=== PATIENT | female | born 1930 | race Caucasian/White ===

== ENCOUNTER → 2017-01-10 11:56 | Emergency (ER) | payer MEDICARE ==
[2017-01-10 12:01] VITALS: BP 160/55
--- NOTE | 2017-01-10 13:35 | RAD ---
HISTORY: Left posterior thigh pain COMPARISONS: None relevant TECHNIQUE: Multiple transverse and longitudinal ultrasound images were obtained of the left lower extremity from the level of the common femoral vein inferiorly through to the infrapopliteal veins using grayscale, color Doppler, and spectral Doppler imaging with and without compression and with augmentation. Comparison images were obtained of the contralateral common femoral vein. FINDINGS: VEINS: The venous system of the left lower extremity is compressible throughout its course, with normal flow on color Doppler imaging and normal response to augmentation on spectral Doppler imaging. SOFT TISSUES: Unremarkable. OTHER FINDINGS: None. IMPRESSION: NO LEFT LOWER EXTREMITY DEEP VEIN THROMBOSIS
--- NOTE | 2017-01-10 13:38 | RAD ---
Indication: Sciatica, left posterior thigh pain CT of the lumbar spine was obtained in the axial plane. The vertebral bodies appear normal in height. At L5-S1 the disc is preserved in height and signal. No facet arthropathy is noted. At L4-L5 degenerative disc disease with spondylytic ridge flattens the thecal sac. Moderate degree of facet arthropathy is noted. No central or foraminal stenosis is noted. At L3-L4 degenerative disc disease and spondylitic ridge is noted. Moderate degree of facet arthropathy is noted. No central or foraminal stenosis is noted. At T12-L1, L1-L2, L2-L3 and L3-L4 the disc is preserved in height and signal. No compression fracture is identified. IMPRESSION: Degenerative disc disease at L3-L4 and L4-L5 without evidence of fracture.
--- NOTE | 2017-01-10 14:23 | ED ---
Winston Burrows Rebecca, scribed for Justine Sutton MD on 01/10/17 at 1215 . Lower Extremity - HPI Summary HPI Summary: Pt is an 86 y/o F who presents to ED c/o posterior LLE pain in the hamstring. Pain began suddenly last night, preventing the pt from sleeping, and has been constant since onset. Pain is discrete to the hamstring of the LLE. Pain is currently mild ranked 1/10 and characterized as sharp, shooting. Sx aggravated by palpation and sitting, alleviated by nothing. Reports movement does not increase sx. Denies fever, chills, dysuria. When asked, pt denied any pain medications. One prior similar episode of sx, during which the pt was concerned about DVT, which was r/o. PMHx sciatic back pain. No PMHx CA. - History of Current Complaint Chief Complaint: EDExtremityLower Stated Complaint: LT THIGH PAIN Time Seen by Provider: 01/10/17 12:14 Hx Obtained From: Patient Onset of Pain: Prior to Arrival Onset/Duration: Hours - Last night Severity Initially: Moderate Severity Currently: Mild Pain Intensity: 1 Pain Scale Used: 0-10 Numeric Timing: Constant Location: Is Discrete @ - LLE hamstring Associated Signs And Symptoms: Positive: Negative. Negative: Fever Aggravating Factor(s): Other - Palpation Alleviating Factor(s): Nothing PMH/Surg Hx/FS Hx/Imm Hx Endocrine/Hematology History: Denies: Hx Diabetes Cardiovascular History: Reports: Hx Hypercholesterolemia Denies: Other Cardiovascular Problems/Disorders Respiratory History: Denies: Hx Asthma, Hx Chronic Obstructive Pulmonary Disease (COPD) Musculoskeletal History: Reports: Hx Back Problems - Sciatic back pain Infectious Disease History: No Infectious Disease History: Denies: Traveled Outside the [place] in Last 30 Days - Family History Known Family History: Positive: Hypertension - Social History Alcohol Use: None Substance Use Type: Reports: None Hx Tobacco Use: No Smoking Status (MU): Never Smoked Tobacco Review of Systems Negative: Fever, Chills Negative: dysuria Positive: Arthralgia - Hamstring pain in the LLE All Other Systems Reviewed And Are Negative: Yes Physical Exam - Summary Physical Exam Summary: General: Well appearing, no pain distress Skin: Warm, Skin Color Reflects Adequate Perfusion, Dry Eyes: EOMI, NIYAH ENT: Pharynx normal, TMs normal Neck: Supple, nontender Respiratory: CTA, breath sounds present, no rhonchi, no wheezes, no rales Cardiovascular: RRR, no murmur, no rub, no gallop Abdomen: Soft, nontender, Non-distended, no guarding, no rebound Bowel: Present Musculoskeletal: TRISTA, No edema, No costovertebral tenderness, No erythema or fluctuance. Tenderness over the hamstring. Neuro: Sensory/motor intact, A&Ox3, CN intact 2-12 Psych: Affect/mood appropriate Triage Information Reviewed: Yes Vital Signs On Initial Exam: Initial Vitals Temp Pulse Resp BP Pulse Ox 96.2 F 77 20 160/55 100 01/10/17 11:58 01/10/17 11:58 01/10/17 11:58 01/10/17 11:58 01/10/17 11:58 Vital Signs Reviewed: Yes Diagnostics - Vital Signs Vital Signs Temp Pulse Resp BP Pulse Ox 01/10/17 12:01 96.4 F 76 20 160/55 100 01/10/17 11:58 96.2 F 77 20 160/55 100 - Laboratory Lab Statement: Any lab studies that have been ordered have been reviewed, and results considered in the medical decision making process. - CT CT L-Spine CT Interpretation Completed By: Radiologist - Degenerative disc disease at L3- L4 and L4-L5 without evidence of fracture. - Ultrasound No standard instances Ultrasound Interpretation: No Acute Changes - NO LEFT LOWER EXTREMITY DEEP VEIN THROMBOSISVenosu Doppler Study: Ultrasound Interpretation Completed By: Radiologist Lower Extremity Course/Dx - Course Course Of Treatment: 86 yo female normal vs with discomfort posterior thigh, no erythema, full range of motion, able to ambulate, no mass, no fluctuance, no induration. doppler of ext neg, ct shows diffuse disease but not clear diagnosis of sciatica as the etiology of the pain. pt without fevers, pt to f/u with pmd and will take tylenol of note no trauma - Diagnoses Provider Diagnoses: Leg pain Discharge - Discharge Plan Condition: Stable Disposition: HOME Patient Education Materials: Leg Pain (ED) Referrals: Josué Nicole MD [Primary Care Provider] - 2 Days The documentation as recorded by the Winston gillespie Rebecca accurately reflects the service I personally performed and the decisions made by me, Justine Sutton MD.
== END | disposition home or self-care (01) ==
LOC: ED 11:56
DX: M79.662 Pain in left lower leg (principal); E78.00 Pure hypercholesterolemia, unspecified; M51.36 Other intervertebral disc degeneration, lumbar region
CPT/HCPCS: 72131; 99281

== ENCOUNTER 2017-12-23 07:04 | Day surgery (SDC) | payer MEDICARE, OTHER ==
--- NOTE | 2017-12-14 09:28 | HP ---
PREOPERATIVE HISTORY AND PHYSICAL: DATE OF ADMISSION/SURGERY: 12/23/17 DATE OF OFFICE VISIT/ENCOUNTER: 12/05/17 ATTENDING SURGEON: Lisa Crockett MD* (dictated by FUNMILAYO Puri). PROCEDURE: Right thumb trigger finger release. CHIEF COMPLAINT: Right thumb triggering. HISTORY OF PRESENT ILLNESS: This is an 87-year-old female, who complains of catching and clicking in her right thumb since the end of 2016. She is having trouble squeezing her eye drops bottle and doing such things as tying her shoes and riding. She did receive a cortisone injection in August of 2017 that was helpful for a short period of time, but symptoms returned. She is interested in pursuing more definitive treatment for this problem and has consented to proceed with surgery. PAST MEDICAL HISTORY: 1. Hypertension. 2. Hypothyroidism. 3. Glaucoma. 4. Hypercholesterolemia. 5. GERD. PAST SURGICAL HISTORY: 1. Corneal implants. 2. Ectopic . CURRENT MEDICATIONS: 1. Amlodipine besylate 10 mg daily. 2. Aspirin 81 mg daily. 3. Azopt 1% one drop twice daily, right eye. 4. Fish oil 1000 mg daily. 5. Folic acid 1 mg daily. 6. Istalol 0.5% 1 drop right eye daily. 7. Losartan potassium 100 mg daily. 8. Senior Multivitamin 1 daily. 9. Synthroid 50 mcg daily. 10. Travatan Z 0.004% one drop right eye daily. 11. Triamcinolone acetonide 0.1% apply twice daily p.r.n. 12. Vitamin B12 and B6 daily. 13. Zetia 10 mg daily. ALLERGIES: IODINE, REQUIP, and SULFA ANTIBIOTICS, reaction unknown. FAMILY MEDICAL HISTORY: Heart disease and cancer. SOCIAL HISTORY: The patient is retired. She is a former smoker. She quit approximately 50 years ago. She denies recreational drug use. She drinks alcohol on a very rare occasion. REVIEW OF SYSTEMS: General: Negative for fevers, chills, or night sweats. No known anesthesia problems. HEENT: Positive for runny nose. Negative for headache, lightheadedness, or syncopal episodes. Integumentary: Negative for abrasions, lesions, or open wounds. Cardiothoracic: Negative for hypertension , chest pain, palpitations, or edema. Pulmonary: Positive for cough/ congestion. Negative for shortness of breath with exertion, chronic cough, or COPD. GI: Positive for GERD. Negative for nausea, vomiting, diarrhea, or constipation. : Negative for nocturia, urinary frequency, urgency, history of UTIs, and kidney problems. Musculoskeletal: Positive for current complaint , negative for chronic or intermittent back pain, or history of fractures. Neurological: Negative for paresthesias, numbness, history of seizure, stroke, or epilepsy. Endocrine: Positive for hypothyroidism, negative for diabetes. Hematologic: Negative for easy bruising, anemia, excessive bleeding, history of DVT. Infectious Disease: Negative for history of MRSA, hepatitis C, HIV. PHYSICAL EXAMINATION GENERAL: Well-developed, well-nourished, 87-year-old female, in no acute distress. VITAL SIGNS: Height 5 feet 6 inches, weight 198 pounds, pulse rate 83, blood pressure 110/68. HEENT: Normocephalic, atraumatic. Pupils are equal, round, and reactive to light and accommodation. Extraocular movements are intact. Throat is clear. NECK: Supple. No palpable lymph nodes. PULMONARY: Lungs are clear to auscultation bilaterally. No wheezes, rales, or rhonchi. CARDIOVASCULAR: Regular rate and rhythm. S1, S2. No murmurs, rubs, or gallops. No edema. ABDOMEN: Positive bowel sounds, soft, nontender. NEUROLOGICAL: Alert and oriented x3. Cranial nerves II through XII are intact. Sensation is intact to light touch. MUSCULOSKELETAL: On exam of her right thumb, she has tenderness to palpation at the A1 jailene and a palpable nodule, increased pain with flexion and extension and active triggering. Neurovascular function is intact. IMPRESSION: Right thumb trigger thumb. PLAN: The patient is scheduled to undergo a right thumb trigger finger release with Dr. Crockett on 12/23/17. She will return to the office 10 days postop for followup and suture removal. A prescription for Ultracet was e-scribed to the patient's pharmacy for postoperative pain management. FUNMILAYO PURI [id number]/[facility] #: [id number] [facility] HOSPITALSerena
[~2017-12-23 07:04] MED LIST: Buffered Lidocaine 0.9% SYRIN* 5 ML/SYR SYRINGE INTRADERM ONE
[2017-12-23] MEDS ORDERED: Lidocaine 1% INJ* 10 MG/ML 30 ML SDV ONE (08:16)
[2017-12-23] MEDS ORDERED: Naloxone* 0.4 MG/ML 1 ML VIAL IV PRN (08:54)
[2017-12-23 09:01] VITALS: BP 125/58
--- NOTE | 2017-12-24 02:28 | OP ---
DATE OF OPERATION: 12/23/17 [facility] DATE OF : 32 SURGEON: Lisa Crockett MD METALLURGICAL ANALYST: FUNMILAYO Puri ANESTHESIA: Local MAC. PRE-OP DIAGNOSIS: Right trigger thumb. POST-OP DIAGNOSIS: Right trigger thumb. OPERATIVE PROCEDURE: Right trigger thumb release. ESTIMATED BLOOD LOSS: Zero. TOURNIQUET TIME: About 5 minutes. INDICATIONS FOR PROCEDURE: Mayra is an 87-year-old female with painful locking of her right thumb. She presents for trigger thumb release. DESCRIPTION OF PROCEDURE: The patient was brought to the operating room, was given a sedation anesthetic and a local infiltration of 10 cc of 1% plain lidocaine overlying the A1 jailene of the right thumb. The skin of her right hand and forearm was prepped and draped in the usual sterile fashion. The hand and forearm were exsanguinated and the tourniquet elevated to 250 mmHg. A transverse incision was made centered over the A1 jailene. We dissected bluntly through the subcutaneous tissue down to the jailene. The digital neurovascular bundles were retracted. The A1 jailene was incised longitudinally, completely releasing the flexor tendon, which was in good condition with just a minor abrasion. The wound was irrigated and the skin edges reapproximated with 4-0 nylon suture. The wound was dressed with Xeroform, 4x4, Webril, and an Tonny wrap. The patient tolerated the procedure well and was brought to the recovery room in good condition. [id number]/[facility] #: [id number] MTDD
== END 2017-12-23 09:10 | disposition home or self-care (01) ==
LOC: OREAST 07:04
PROVIDERS: ATTEND Orthopaedic Surgery
DX: M65.311 Trigger thumb, right thumb (principal); I10 Essential (primary) hypertension; E03.9 Hypothyroidism, unspecified; E78.00 Pure hypercholesterolemia, unspecified; K21.9 Gastro-esophageal reflux disease without esophagitis; H40.9 Unspecified glaucoma; Z87.891 Personal history of nicotine dependence; Z68.32 Body mass index [BMI] 32.0-32.9, adult; M19.90 Unspecified osteoarthritis, unspecified site; E78.5 Hyperlipidemia, unspecified

== ENCOUNTER 2018-04-16 22:35 | Emergency (ER) | payer MEDICARE, OTHER ==
[2018-04-16] MEDS ORDERED: Al Hydrox/Mg Hydrox/Simet LIQ* 30 ML UDC PO ONE (23:53)
[2018-04-17 00:01] LABS: ABS Basophils 0 10^3/ul (0-0.2); ABS Eosinophils 0.3 10^3/ul (0-0.6); ABS Lymphocytes 1.9 10^3/ul (1.0-4.8); ABS Monocytes 0.8 10^3/ul (0-0.8); ABS Neutrophils 3.6 10^3/ul (1.5-7.7); ABS Nucleated RBC 0 10^3/ul; Hematocrit 39 % (35-47); Lymphocyte % 28.4 % (25-47); Mean Corpuscular HGB Conc 34 g/dl (31-36); Mean Corpuscular Hemoglobin 30 pg (27-31); Mean Corpuscular Volume 90 fL (80-97); Mean Platelet Volume 8.6 um3 (7.4-10.4); Nucleated Red Blood Cells % 0.1; Platelet Count 180 10^3/ul (150-450); Red Blood Count 4.31 10^6/ul (4.00-5.40); Red Cell Distribution Width 14 % (10.5-15); White Blood Count 6.6 10^3/ul (3.5-10.8)
[2018-04-17 00:19] LABS: EGFR Non-African American 37.5 (>60)
[2018-04-17] MEDS ORDERED: Famotidine TAB* 20 MG PO ONE (00:27)
[2018-04-17 00:53] VITALS: BP 145/80
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
== END 2018-04-17 00:52 | disposition home or self-care (01) ==
LOC: ED 22:35
DX: R10.13 Epigastric pain (principal); I10 Essential (primary) hypertension; Z87.891 Personal history of nicotine dependence
CPT/HCPCS: 36415; 80053; 84484; 85025; 86140; 93005; 99282; A9270-GY